=== PATIENT | female | born 1995 | race Caucasian/White ===

== ENCOUNTER 2021-07-16 09:01 | Observation (INO) | payer OTHER, SELFPAY ==
[~2021-07-16] VITALS: Ht 172.7 cm; Wt 89.4 kg
[2021-07-16 09:13] VITALS: BP 141/83
--- NOTE | 2021-07-16 09:16 | NUR ---
PT SENT TO LOBBY
--- NOTE | 2021-07-16 10:30 | NUR ---
PT AMBULATED TO BED
--- NOTE | 2021-07-16 10:30 | NUR ---
25/F BIB SELF WITH C/O HAND AND FEET PAIN AND SWELLING X5 DAYS. STATES SHE HAS ALSO BEEN HAVING INTERMITTENT CHEST PAIN FOR ONE WEEK. DENIES SOB, FEVER OR CHILLS. PATIENT IS APPROXIMATELY 34 WEEKS , A1. EDEMA TO BILAT LEGS, PAIN UPON PALPATION. MEDHX: ASTHMA ALLERGIES: PENICILLIN
--- NOTE | 2021-07-16 10:45 | NUR ---
ULTRASOUND AT BEDSIDE
[2021-07-16 10:55] LABS: BASOPHILS % (AUTO) 0.1 % (0.0-2.0); EOSINOPHILS # (AUTO) 0.2 K/uL (0-0.4); EOSINOPHILS % (AUTO) 1.2 % (0.0-4.0); HEMATOCRIT 33.1 % (36-48); HEMOGLOBIN 10.8 g/dL (12.0-16.0); LYMPHOCYTES # (AUTO) 1.8 K/uL (2.5-16.5); MEAN CORPUSCULAR HEMOGLOBIN 27 pg (27-31); MEAN CORPUSCULAR HGB CONC 33 g/dL (33-37); MEAN CORPUSCULAR VOLUME 84.2 fL (80-94); MONOCYTES # (AUTO) 0.8 K/uL (0.8-1.0); MONOCYTES % (AUTO) 6.2 % (1.7-9.3); NEUTROPHILS # (AUTO) 10.7 K/uL (1.8-7.7); NEUTROPHILS % (AUTO) 79.5 % (42.2-75.2); PLATELET COUNT (AUTO) 284 K/uL (140-450); RED BLOOD CELL COUNT(AUTO) 3.93 MIL/uL (4.20-5.40); RED CELL DISTRIBUTION WIDTH 14.1 % (11.6-13.7); WHITE BLOOD COUNT (AUTO) 13.5 K/uL (4.8-10.8)
[2021-07-16 11:25] LABS: ALBUMIN 2.6 g/dL (3.4-5.0); ANION GAP 16.9 (8-16); CARBON DIOXIDE 22.5 mmol/L (21-32); CREATININE 0.5 mg/dL (0.6-1.3); POTASSIUM 3.4 mmol/L (3.5-5.1); TOTAL BILIRUBIN 0.3 mg/dL (0.0-1.0)
[2021-07-16 12:18] LABS: APPEARANCE,URINE CLEAR (CLEAR); BILIRUBIN,URINE NEGATIVE (NEGATIVE); BLOOD, URINE NEGATIVE (NEGATIVE); COLOR,URINE YELLOW (YELLOW); LEUKOCYTE ESTERASE ,URINE NEGATIVE (NEGATIVE); NITRITE, URINE NEGATIVE (NEGATIVE); UGLUCOSE NEGATIVE (NEGATIVE)
[2021-07-16] MEDS ORDERED: NACL 0.9% 1,000 ML IV ONE (12:20)
--- NOTE | 2021-07-16 12:30 | NUR ---
PT'S FIANCE AT BEDSIDE
--- NOTE | 2021-07-16 15:02 | NUR ---
Patient discharged with v/s stable. Written and verbal after care instructions given and explained. Patient verbalized understanding. Wheel Chair Assisted TO L&D PER DR TIFFANIE CHANG, OB. All questions addressed prior to discharge. Advised to follow up with PMD.
[2021-07-16] MEDS: ACETAMINOPHEN 325 MG TAB PO PRN (16:38)
[2021-07-16] MEDS: CALCIUM CARBONATE 500 MG TAB.CHEW PO SCH (16:40)
[2021-07-16] MEDS ORDERED: FAMOTIDINE 20 MG TAB ONE (16:46)
[2021-07-16 17:24] LABS: ALBUMIN 2.4 g/dL (3.4-5.0); BILIRUBIN,DIRECT 0.1 mg/dL (0.0-0.3); TOTAL BILIRUBIN 0.3 mg/dL (0.0-1.0)
[2021-07-16 17:32] VITALS: BP 112/67
[2021-07-16] MEDS ORDERED: ZOLPIDEM 5 MG TAB ONE (21:50)
[2021-07-17] MEDS: ACETAMINOPHEN 325 MG TAB PO PRN (08:30)
[2021-07-17] MEDS ORDERED: FAMOTIDINE 20 MG TAB PO SCH (09:00)
[2021-07-17] MEDS: CALCIUM CARBONATE 500 MG TAB.CHEW PO SCH (09:42)
[2021-07-17] MEDS ORDERED: ZOLPIDEM 5 MG TAB PO SCH (21:00)
--- NOTE | 2021-07-18 15:13 | NUR ---
LATE ENTRY- IV FLUIDS SODIUM CHLORIDE DISCONTINUED AT 1502.
== END 2021-07-17 13:45 | disposition home or self-care (01) ==
LOC: MED 09:01 → MFCC 15:02 → MLD 15:15 → MFCC 17:28
PROVIDERS: ADMIT Obstetrics & Gynecology; ATTEND Obstetrics & Gynecology
DX: O99.891 Other specified diseases and conditions complicating pregnancy (principal); Z20.822 Contact with and (suspected) exposure to COVID-19; M79.642 Pain in left hand; M79.641 Pain in right hand; M79.672 Pain in left foot; M79.671 Pain in right foot; O26.893 Other specified pregnancy related conditions, third trimester; R07.2 Precordial pain; O99.513 Diseases of the respiratory system complicating pregnancy, third trimester; J45.909 Unspecified asthma, uncomplicated; Z3A.36 36 weeks gestation of pregnancy; Z88.0 Allergy status to penicillin; Z79.899 Other long term (current) drug therapy
CPT/HCPCS: 36415; 59025; 71045; 71275; 80053; 80076; 81003; 83880; 84484; 85025; 85379; 87426; 93005; 93970; 99285; G0378; Q0092; Q9967